=== PATIENT | male | born 1970 | race Caucasian/White ===

== ENCOUNTER 2021-05-10 19:48 | Observation (INO) | payer OTHER, BC ==
[~2021-05-10] VITALS: Ht 175.3 cm; Wt 118.9 kg
[2021-05-10 21:16] LABS: BASOPHILS ABSOLUTE AUTO 0.07 K/mm3 (0.00-0.23); BASOPHILS PERCENT AUTO 1 % (0-2); EOSINOPHILS ABSOLUTE AUTO 0.25 K/mm3 (0.00-0.68); EOSINOPHILS PERCENT AUTO 4 % (0-6); Hematocrit 44.8 % (37.0-53.0); Hemoglobin 14.8 g/dL (13.5-17.5); IMMATURE GRAN ABSOLUTE AUTO 0.01 K/mm3 (0.00-0.10); IMMATURE GRAN PERCENT AUTO 0 % (0-1); LYMPHOCYTES PERCENT AUTO 46 % (21-46); MONOCYTES ABSOLUTE AUTO 0.44 K/mm3 (0.16-1.47); MONOCYTES PERCENT AUTO 6 % (4-13); Mean Corpuscular HGB 28.4 pg (26.0-34.0); Mean Corpuscular Volume 86 fL (80-100); Mean Platelet Volume 10.7 fL (9.1-12.4); NEUTROPHILS ABSOLUTE AUTO 3.05 K/mm3 (1.96-9.15); NEUTROPHILS PERCENT AUTO 43 % (41-73); Platelet Count 194 K/mm3 (150-400); RDW Coefficient Variation 13.1 % (11.7-14.2); Red Blood Cell Count 5.22 M/mm3 (4.30-5.90); White Blood Cell Count 7.02 K/mm3 (4.00-11.30)
[2021-05-10 21:38] LABS: Alanine Aminotransfer (ALT/SGP 37 U/L (12-78); Albumin/Globulin Ratio 1.1 (0.8-1.8); Alk Phos 63 U/L (50-136); Anion Gap 7 mmol/L (6-16); Aspartate Aminotrans (AST/SGOT 29 U/L (12-37); Bilirubin, Total 0.1 mg/dL (0.1-1.0); Blood Urea Nitrogen 9 mg/dL (8-24); Bun/Creatinine Ratio 11.6 (12.0-20.0); CO2, Blood 24 mmol/L (21-32); Calcium, Blood 8.3 mg/dL (8.5-10.1); Chloride, Blood 109 mmol/L (98-108); Creatinine, Blood 0.77 mg/dL (0.60-1.20); Ethanol (Alcohol), Blood, Med 300 mg/dL; Globulin, Blood 3.6 g/dL (2.2-4.0); Glomerular Filtration Rate >60 (60-); Glucose, Blood 133 mg/dL (70-99); Potassium, Blood 3.9 mmol/L (3.5-5.5); Sodium, Blood 140 mmol/L (136-145); Total Protein, Blood 7.6 g/dL (6.4-8.2)
[2021-05-10 21:45] LABS: U Amphetamine Screen Not Detected; U Barbituate Screen Not Detected; U Benzodiazapine Screen Not Detected; U Buprenorphine Screen Not Detected; U Cannabinoids Screen Not Detected; U Cocaine Screen Not Detected; U Methadone Screen Not Detected; U Methamphetamine Screen Not Detected; U Opiates Screen Not Detected; U Oxycodone Screen Not Detected; U Phencyclidine Screen Not Detected; U Propoxyphene Screen Not Detected
[2021-05-10 22:46] LABS: PCO2 Arterial 40.6 mmHg (35-45); PO2 Arterial 156 mmHg (80-100); pH Blood Arterial 7.35 (7.35-7.45)
--- NOTE | 2021-05-11 02:09 | NUR ---
PATIENT TO ROOM FROM ER AT 0035. PATIENT IS INTUBATED AND SEDATED ON PROPOFOL. WHILE SLIDING PATIENT HE ATTEMPTED TO PULL AT LINES AND TUBES, PROPOFOL INCREASED. OPENS EYES TO PRESSURE. MOVES ALL EXTREMETIES. 02 SATS 99% ON VENT AC VC 14/500/5/40%. LUNGS SOUNDS CLEAR. OG TO LIS, MODERATE AMOUNT OF BROWN BILE. HR SR @60s. BP STABLE WITH MAP >65. FENG DRAINING CLOUDY YELLOW URINE TO GRAVITY. SEE SHIFT ASSESSMENT FOR MORE DETAIL.
[2021-05-11 04:05] LABS: Hematocrit 40.7 % (37.0-53.0); Hemoglobin 13.6 g/dL (13.5-17.5); Mean Corpuscular HGB 28.6 pg (26.0-34.0); Mean Corpuscular HGB Conc 33.4 g/dL (31.5-36.5); Mean Corpuscular Volume 86 fL (80-100); Mean Platelet Volume 10.5 fL (9.1-12.4); Platelet Count 204 K/mm3 (150-400); RDW Coefficient Variation 13.1 % (11.7-14.2); RDW Standard Deviation 40.5 fL (35.1-46.3); Red Blood Cell Count 4.75 M/mm3 (4.30-5.90); White Blood Cell Count 6.08 K/mm3 (4.00-11.30)
[2021-05-11 04:28] LABS: Alanine Aminotransfer (ALT/SGP 35 U/L (12-78); Albumin, Blood 3.5 g/dL (3.4-5.0); Albumin/Globulin Ratio 1.2 (0.8-1.8); Alk Phos 48 U/L (50-136); Anion Gap 8 mmol/L (6-16); Aspartate Aminotrans (AST/SGOT 21 U/L (12-37); Bilirubin, Total 0.3 mg/dL (0.1-1.0); Blood Urea Nitrogen 9 mg/dL (8-24); Bun/Creatinine Ratio 11.6 (12.0-20.0); CO2, Blood 23 mmol/L (21-32); Calcium, Blood 7.9 mg/dL (8.5-10.1); Chloride, Blood 110 mmol/L (98-108); Creatinine, Blood 0.78 mg/dL (0.60-1.20); Glomerular Filtration Rate >60 (60-); Glucose, Blood 151 mg/dL (70-99); Potassium, Blood 3.7 mmol/L (3.5-5.5); Sodium, Blood 141 mmol/L (136-145); Total Protein, Blood 6.5 g/dL (6.4-8.2)
--- NOTE | 2021-05-11 06:08 | NUR ---
SHIFT SUMMARY PATIENT REMAINS INTUBATED AND SEDATED ON PROPOFOL. PATIENT RESONDS TO TOUCH, WHEN TURNING PATIENT BECOMES EXTREMELY AGITATED, AND UNABLE TO REDIRECT, PULLS AT RESTRAINTS ATTEMPTING TO PULL ETT. 02 SATS 97% ON VENT AC VC 14/500/5/40%. LS CLEAR TO DIM. SUCTIONED SCAN AMOUNT OF MARADIAGA SPUTUM. OG TO LIS, BROWN BILE DRANING. HR SR @60s. BP STABLE. FENG DRAINING YELLOW URINE TO GRAVITY. ORAL CARE PROVIDED AND PATIENT TURNED Q2 HOURS. ATTEMPTED TO CALL SIGNIFICANT OTHER, NO ANSWER.
--- NOTE | 2021-05-11 10:22 | NUR ---
PT WOKE UP WITH 40MCG/KG/MIN OF PROPOFOL RUNNING. PT WAS ABLE TO FOLLOW COMMANDS ALTHOUGH AGITATED ABOUT ETT. TURNED PROPOFOL OFF AND AFTER 15 MINUTE SBT PT WAS EXTUBATED. PT IS A/O TO PERSON AND PLACE. FORGETFUL OF EVENTS THAT BROUGHT HIM HERE AND ASKING A LOT OF QUESTIONS. PLEASANT AND COOPERATIVE THOUGH. ON NC SPO2 98%. NO SIGN OF DISTRESS. BED ALARM ARMED FOR SAFETY.
--- NOTE | 2021-05-11 15:50 | NUR ---
PT A/O X4. ABLE TO TOLERATE PO FLUIDS. ON RA WITH SPO2 96%. PT ABLE TO AMBULATE SELF TO BATHROOM AND BACK TO BED. FENG TAKEN OUT AND PT ABLE TO VOID. PT READY TO GO HOME. DR. GONZALEZ WROTE D/C ORDERS. IV'S REMOVED AND PT GOT HIMSELF DRESSED. TAKEN BY W/C OUT TO FRIEND'S CAR. WAS IN EARLIER IN THE DAY. NO SIGN OF DISTESS.
== END 2021-05-11 16:00 | disposition home or self-care (01) ==
LOC: ER 19:48 → ICUW 19:49 → ICUE 19:49
PROVIDERS: Student in an Organized Health Care Education/Training Program; ADMIT Internal Medicine
DX: F10.129 Alcohol abuse with intoxication, unspecified (principal); J96.01 Acute respiratory failure with hypoxia; G92.8 Other toxic encephalopathy; I95.9 Hypotension, unspecified; Y90.8 Blood alcohol level of 240 mg/100 ml or more
CPT/HCPCS: 31500; 36600; 51702; 70450; 71045; 80053; 82803; 85025; 85027; 93005; 93010; 94002; 94003; 94664; 94667; A9270; C1751; G0480; J1650; J2060; J2310; J2704; J3411; J3475; J7030; J7042